=== PATIENT | male | born 1960 | race Caucasian/White ===

== ENCOUNTER 2019-06-09 00:33 | Inpatient (IN) ==
--- NOTE | 2019-06-09 02:49 | History & Physical Report ---
Date of Service June 09, 2019 Assessment & Plan (1) Diarrhea: This is a 58-year-old male who presents from [facility] ED due to worsening abdominal pain, nausea, diarrhea and bloating for several days. Past medical history significant for history of pancreatitis, hypertension (on daily lisino pril), GERD (on daily omeprazole and ranitidine ), irritable bowel --he states he has had prior EGD and colonoscopy about 20 years ago with [facility]. That was done due to similar symptoms of loose stools and persistent severe abdominal pain and bloating. States he had an episode of gastroenteritis about 2 weeks ago when " a bug was going around" but that resolved. Now with recurrent gastrointestinal upset for several days. Denies bloody bowel movements. Endorses watery bowel movements " too many to count". At outside hospital: -Received IV fluids, Toradol, Zofran, Reglan, Dilaudid, magnesium sulfate, and apparently Zosyn. -Labs: H&H 16.3/48.9, platelets 238, significant eosinophilia 12.7 (1.0-3.0), urine negative for nitrites or leukocytes or glucose. Trace protein. Coags normal. Sodium 141, potassium 3.6, chloride 106, anion gap 17.6, BUN 15, creatinine 1.1. Glucose 112. Total bilirubin 0.6. AST ALT 18/30. Albumin 3.8. Alkaline phosphatase 72, C. difficile negative. Magnesium 1.5. Rapid flu negative. Lipase 193. Lactic acid 1.4. -Imaging: CT abdomen and pelvis with contrast report states " fluid in the colon suggesting diarrhea, mild distention and small and large bowel loops, unremarkable appendix, thickening of the distal esophagus, GE junction and gastric cardia. Could be from inflammatory or neoplastic process. Further evaluation needed. Small nodes and some surrounding edema/fluid. Thickening in the distal stomach with the much milder adjacent stranding. No radiodense gallstones or pancreatitis. Left renal cyst. Small fat-containing umbilical hernia." Assessment: Profuse diarrhea for several days -In setting of person diagnosed with irritable bowel -C. difficile is negative at outside hospital -CT abdomen with abnormal findings as above. Plan: -We will have CT of the abdomen pelvis scanned into chart for radiology review -Consult gastroenterology for possible EGD -N.p.o. -IV fluids -Antiemetics, pain control -Urine, stool, and blood cultures pending from outside hospital ([facility], .) FEN/GI: N.p.o. with sips. IV fluids running at maintenance. Continue home H2 esrge and PPI. DVT ppx: SCDs while awaiting possible intervention. CODE STATUS: Full as discussed with patient DISPO: MedSurg, GI consult. Other ongoing medical problems: -Hypertension: Continue home lisinopril -GERD: Continue home H2 serge and PPI. (2) Bloating: (3) Nausea & vomiting: (4) Abnormal CT of the abdomen: (5) Benign essential hypertension: (6) GERD (gastroesophageal reflux disease): (7) Irritable bowel syndrome: History of Present Illness Primary Care Provider: Kath Mike PA-C This is a 58-year-old male who presented to an outside hospital ED due to worsening abdominal pain, nausea, diarrhea and bloating for several days. Past medical history significant for history of pancreatitis, hypertension (on daily lisinopril), GERD (on daily omeprazole and ranitidine ), irritable bowel --he states he has had prior EGD and colonoscopy about 20 years ago with [facility]. That was done due to similar symptoms of loose stools and persistent severe abdominal pain and bloating. States he had an episode of david roenteritis about 2 weeks ago when " a bug was going around" but that resolved. Now with recurrent gastrointestinal upset for several days. Denies bloody bowel movements. Endorses watery bowel movements " too many to count". Family history: Father at age 62 due to " obesity, not watching his sugars, his heart exploded". Mother alive and well. Has 2 step siblings. Past medical history: As above. Past surgical history: Shoulder surgery, tonsillectomy. Social history: He is a truck loader overhead crane. He lives alone. He smoked about 20 years ago for a year. No alcohol or drugs. No recent travel outside the [place]. Home Medications Home Medications Medication Instructions Recorded Confirmed Type lisinopril DAILY 06/09/19 History Past Med/Surg History Social History Preferred Language: Nigerian Communication Ability: Effective Training And Development Project Leader Required: No Beliefs That Will Affect Care: None Current Living Situation: Alone Feels Safe at Home: Yes Safety Concerns: Feels Safe At This Time Smoking Status: Never smoker Hx Alcohol Use: No Hx Substance Use: No Supervising Physician Co-Signing Physician Notes Pt seen/examined following resident MD Lottie Schultz. Orders and plan of admission reviewed with resident. 58 y/o M Hx HTN, prior cyclical vomiting episodes with neg EGD/colonoscopy > 10 yrs ago. Presents as a transfer from [facility] due to intractable nausea/vomiting and abnormal imaging of the upper stomach/lower esophagus. Differential of inflammatory process vs malignancy per report from [facility]. OE: AAO x 3 S1,2 R CTAB NT, ND No CCE No deficits No rashes / ulcers P: IVF, NPO, antiemetics GI consult to review imaging and decide if an urgent EGD is merited Resident Activity Tracking Resident Involvement: Resident Care Provided Care Provided: Adult Hospital Medicine
[2019-06-09] MEDS ORDERED: ACETAMINOPHEN 325 MG TAB PO PRN (02:54)
[2019-06-09] MEDS ORDERED: POLYETHYLENE (MIRALAX) 17 GM PACK PO PRN (02:54)
[2019-06-09] MEDS ORDERED: ALUMINUM/MAGNESIUM SUSP 30 ML UDC PO PRN (02:54)
[2019-06-09] MEDS ORDERED: MoRPHine SULFATE 2 MG/ML CARP IV PRN (02:54)
[2019-06-09] MEDS ORDERED: ONDANSETRON INJ 2 MG/ML 2 ML VIAL IV PRN (02:54)
[2019-06-09] MEDS ORDERED: MAGNESIUM HYDROXIDE SUSP 30 ML UDC PO PRN (02:54)
[2019-06-09] MEDS ORDERED: D5W AND 1/2NSS + 20MEQ KCL 20 MEQ/1,000 ML BAG IV SCH (04:30)
[2019-06-09 05:55] LABS: Basophils # (auto) 0.05 K/uL (0-0.2); Basophils % (auto) 0.2 %; Eosinophils % (auto) 10.7 %; Hematocrit (blood only) 50.1 % (42-52); Hemoglobin 16.8 g/dL (14.0-18.0); Immature Granulocytes # (auto) 0.16 K/uL (0.00-0.02); Immature Granulocytes % (auto) 0.7 %; Lymphocytes # (auto) 1.86 K/uL (1.2-3.4); Lymphocytes % (auto) 8.3 %; Mean Corpuscular Hemoglobin 31.9 pg (25-34); Mean Corpuscular Hgb Conc 33.5 g/dL (32-36); Mean Corpuscular Volume 95.2 fL (80-100); Mean Platelet Volume 11.8 fL (7.4-10.4); Monocytes # (auto) 1.99 K/uL (0.11-0.59); Monocytes % (auto) 8.9 %; Neutrophils # (auto) 15.99 K/uL (1.4-6.5); Neutrophils % (auto) 71.2 %; Platelet Count 180 K/uL (130-400); RDW Coefficient of Variation 13.2 % (11.5-14.5); RDW Standard Deviation 45.7 fL (36.4-46.3); Red Blood Count 5.26 M/uL (4.7-6.1); White Blood Count 22.45 K/uL (4.8-10.8)
[2019-06-09 06:26] LABS: BUN Creatinine Ratio 16.1 (10-20); Calcium 8.2 mg/dl (8.5-10.1); Creatinine Clr Calc Pharmacy 121.8 ml/min; Est GFR (African American) 101.3; Est GFR (Non-African American) 87.4; Potassium 3.9 mmol/L (3.5-5.1)
[2019-06-09 06:29] LABS: Albumin Globulin Ratio 0.9 (0.9-2); Bilirubin,Total 0.8 mg/dl (0.2-1); Globulin 3.3 gm/dl (2.5-4.0); Total Protein 6.3 gm/dl (6.4-8.2)
[2019-06-09] MEDS ORDERED: FAMOTIDINE 20 MG in SYRINGE 3 ML IV SCH (09:00)
[2019-06-09] MEDS ORDERED: lisinopriL 10 MG TAB PO SCH (09:00)
[2019-06-09] MEDS ORDERED: PANTOprazole 40 MG TAB PO SCH (09:00)
[2019-06-09] MEDS ORDERED: KETAMINE HCL INJ 50 MG/ML 10 ML VIAL ONE (12:03)
[2019-06-09] MEDS ORDERED: SODIUM CHLORIDE 0.9% 1000ML 1,000 ML IV SCH (12:15)
--- NOTE | 2019-06-09 12:15 | History & Physical Report ---
Date of Service June 09, 2019 History of Present Illness Chief Complaint: Abd pain, abnl CT of the esophagus Primary Care Provider: Kath Mike PA-C For EGD Allergies Allergy/AdvReac Type Severity Reaction Status Date / Time No Known Allergies Allergy Unverified 06/09/19 05:01 Home Medications Home Medications Medication Instructions Recorded Confirmed Type lisinopril DAILY 06/09/19 History Past Med/Surg History Social History Preferred Language: Polish Communication Ability: Effective Interactive Video Technician Required: No Beliefs That Will Affect Care: None Current Living Situation: Alone Feels Safe at Home: Yes Safety Concerns: Feels Safe At This Time Smoking Status: Never smoker Hx Alcohol Use: No Hx Substance Use: No Physical Exam Constitutional: + obese Respiratory: normal respiratory effort Cardiovascular: Rate/Rhythm: regular rate and regular rhythm Gastrointestinal (Abdomen): Percussion/Palpation: abdomen soft Results & Data Vital Signs (Past 12 Hours) Vital Signs Temp Pulse Pulse Resp BP Pulse Ox 06/09/19 12:05 36.6 C 77 20 165/102 H 93 06/09/19 07:36 37.2 C 80 18 131/84 91 06/09/19 02:35 36.7 C 18 145/95 H 93
--- NOTE | 2019-06-09 12:16 | Anesthesiology Consultation ---
Date of Service June 09, 2019 Assessment & Plan (1) Encounter for pre-operative examination: Chart Review Chart Review: Acceptable Risk for Surgery and Patient NOT seen in Pre Admission Testing Consults Requested none History Surgery Operation Date: 06/09/19 16:00 Proposed Procedures p Esophagogastroduodenoscopy Dr Kisha Beard Height/Weight Height: 5 ft 11 in Weight: 140.6 kg Allergies Allergy/AdvReac Type Severity Reaction Status Date / Time No Known Allergies Allergy Unverified 06/09/19 05:01 Medications Home Medications Medication Instructions Recorded Confirmed Last Taken lisinopril DAILY 06/09/19 Unknown Active Medications Generic Name Dose Route Start Last Admin Trade Name Freq PRN Reason Stop Dose Admin Potassium Chloride/Dextrose/Sod Cl 20 meq in 1,000 mls @ 100 mls/hr 06/09/19 04:30 06/09/19 06:13 D5w And 1/2nss + 20meq Kcl IV 07/09/19 04:29 100 mls/hr .Q10H NICHOLAS Infusion Famotidine 20 mg/ Syringe 5 mls @ 2.5 mls/min 06/09/19 09:00 06/09/19 09:00 IV 07/09/19 08:59 Not Given BID NICHOLAS Lisinopril 30 mg 06/09/19 09:00 06/09/19 08:57 Zestril PO 07/09/19 08:59 30 mg QAM NICHOLAS Administration Pantoprazole Sodium 40 mg 06/09/19 09:00 06/09/19 08:59 Protonix PO 07/09/19 08:59 40 mg BID NICHOLAS Administration NPO Date Last Intake of Fluids: 06/08/19 Time Last Intake of Fluids: 23:59 Date Last Intake of Solids: 06/08/19 Time Last Intake of Solids: 12:00 Social History Smoking Status: Never smoker Hx Alcohol Use: No Hx Substance Use: No Physical Exam Vital Signs Last Vital Signs Temp 36.6 C 06/09/19 12:05 Pulse 77 06/09/19 12:05 Resp 20 06/09/19 12:05 BP 165/102 H 06/09/19 12:05 Pulse Ox 93 06/09/19 12:05 Testing Laboratory Results 06/09/19 05:33 06/09/19 05:33
[2019-06-09] MEDS ORDERED: ATROPINE SULFATE 0.1 MG/ML 10ML SYR IV PRN (12:19)
[2019-06-09] MEDS ORDERED: ePHEDrine sulfate 50 MG/ML AMP IV PRN (12:19)
--- NOTE | 2019-06-09 12:37 | GI REPORT ---
Patient Name: Matt Van Procedure Date: 06/09/2019 12:21 PM Date of : 1960 Admit Type: Inpatient Age: 58 Gender: Male Attending MD: Nimesh Beard MD Procedure: Upper GI endoscopy Providers: Nimesh Beard MD Referring MD: Will Carlton Indications: Epigastric abdominal pain, Abnormal CT of the GI tract, Nausea with vomiting Medicines: Propofol total dose 160 mg IV, Ketamine 20 mg IV, Lidocaine 80 mg IV Complications: No immediate complications. Estimated Blood Loss: Estimated blood loss: none. Procedure: Pre-Anesthesia Assessment: - Prior to the procedure, a History and Physical was performed, and patient medications, allergies and sensitivities were reviewed. The patient's tolerance of previous anesthesia was reviewed. - The risks and benefits of the procedure and the sedation options and risks were discussed with the patient. All questions were answered and informed consent was obtained. After obtaining informed consent, the endoscope was passed under direct vision. Throughout the procedure, the patient's blood pressure, pulse, and oxygen saturations were monitored continuously. The Endoscope was introduced through the mouth, and advanced to the second part of duodenum. The upper GI endoscopy was accomplished without difficulty. The patient tolerated the procedure well. Findings: The examined esophagus was normal. The Z-line was regular and was found 40 cm from the incisors. There are no mass lesions seen. The entire examined stomach was normal. The examined duodenum was normal. Impression: - Normal esophagus. - Z-line regular, 40 cm from the incisors. - Normal stomach. - Normal examined duodenum. - No specimens collected. Recommendation: - Return patient to hospital [facility] for ongoing care. Nimesh Beard M.D. Nimesh Beard MD 06/09/2019 12:36:41 PM This report has been signed electronically. Note Initiated On: 06/09/2019 12:21 PM Number of Addenda: 0 I attest to the content of the Intraoperative Record and orders documented therein, exceptions below {[id number]}
[2019-06-09] MEDS ORDERED: LIDOCAINE HCL 2% 2 ML VIAL/AMP(20MG/ML) INFIL ONE (12:41)
[2019-06-09] MEDS ORDERED: PROPOFOL IV EMULSION 10 MG/ML 20 ML VIAL IV ONE (12:41)
--- NOTE | 2019-06-09 12:58 | Consultation Report ---
DATE OF CONSULTATION: 06/09/2019 GASTROINTESTINAL CONSULT NOTE REASON FOR EVALUATION: Nausea, vomiting, diarrhea and abnormal CT scan of the esophagus. HISTORY OF PRESENT ILLNESS: The patient is a 58-year-old with irritable bowel, who was transferred to [facility] from [facility] when he presented with the above symptoms. The patient states that he had similar episode 12 years ago and was placed on ranitidine and Prilosec, which resolved his symptoms. Recently, his physician recommended that he stop these medications and his symptoms have recurred. When he presented to the hospital, he had a CT scan that showed some thickening of the distal esophagus. His white count was elevated at 22,000 and he was having a fairly profuse diarrhea. Stool for C. diff was obtained at [facility] and was negative. Multiple other stool studies are pending from there as well. GI consultation was recommended for possible EGD. PAST MEDICAL HISTORY: Remarkable for hypertension. MEDICATIONS: Lisinopril. ALLERGIES: None. FAMILY HISTORY: Noncontributory. SOCIAL HISTORY: The patient communicates in Tongan. Does not smoke, does not drink any alcohol. REVIEW OF SYSTEMS: Positive for some abdominal bloating and some loose stools. Remainder is negative. PHYSICAL EXAMINATION: GENERAL: The patient appears awake, alert, in no acute distress. VITAL SIGNS: Normal. He is afebrile. SKIN: Shows multiple tattoos on his arms. LUNGS: Clear. HEART: Showed normal S1 and S2. Regular rate and rhythm. ABDOMEN: Soft and nontender. EGD was performed and was normal. No lesions were seen especially in the esophagus. IMPRESSION AND PLAN: The patient appears to have some kind of infectious enteritis. I would await stool cultures and support with IV fluids and antidiarrheals as needed. Dr. Stroud will be covering over the weekend.
--- NOTE | 2019-06-09 13:16 | Anesthesiology Progress Note ---
Date of Service June 09, 2019 Anesthesia Post Procedure Vital Signs Vital Signs: Temp Pulse Pulse Resp BP Pulse Ox 06/09/19 13:13 74 20 138/76 95 06/09/19 12:58 74 20 152/6 H 95 06/09/19 12:43 36.6 C 78 20 127/65 94 06/09/19 12:05 36.6 C 77 20 165/102 H 93 06/09/19 07:36 37.2 C 80 18 131/84 91 06/09/19 02:35 36.7 C 18 145/95 H 93 Pain Intensity Abdomen: Pain Intensity: 2 Transfer of Care Handoff Completed per policy Notes Mental Status: alert / awake / arousable Patient Amnestic to Procedure: Yes Nausea / Vomiting: adequately controlled Pain: adequately controlled Airway Patency, RR, SpO2: stable & adequate BP & HR: stable & adequate Hydration State: stable & adequate Anesthetic Complications: no major complications apparent and Pt Satisfied with anesthetic care
--- NOTE | 2019-06-09 14:51 | Discharge Summary ---
Date of Service June 09, 2019 Admission HPI Per Admitting Provider This is a 58-year-old male who presented to an outside hospital ED due to worsening abdominal pain, nausea, diarrhea and bloating for several days. Past medical history significant for history of pancreatitis, hypertension (on daily lisinopril), GERD (on daily omeprazole and ranitidine ), irritable bowel --he states he has had prior EGD and colonoscopy about 20 years ago with [facility]. That was done due to similar symptoms of loose stools and persistent severe abdominal pain and bloating. States he had an episode of gastroenteritis about 2 weeks ago when " a bug was going around" but that reso lved. Now with recurrent gastrointestinal upset for several days. Denies bloody bowel movements. Endorses watery bowel movements " too many to count". Admission Exam Per Admitting Provider AAO x 3 S1,2 R CTAB NT, ND No CCE No deficits No rashes / ulcers Principal Diagnosis Diarrhea, Dehydration Discharge Exam Constitutional WD/WN, vitals as above no acute distress Eyes + anicteric sclerae and PERRL Neck trachea midline, no thyromegaly Respiratory normal respiratory effort, lungs clear to auscultation Cardiovascular RRR, no murmur, no edema Gastrointestinal (Abdomen) normal bowel sounds, soft, nontender, no hepatosplenomegaly Musculoskeletal no cyanosis or clubbing, extremities motor strength 5/5 Skin no rashes, warm and dry Psychiatric A+Ox3, euthymic affect Lymphatic no cervical or axillary lymphadenopathy Discharge Data Allergies Allergy/AdvReac Type Severity Reaction Status Date / Time No Known Allergies Allergy Unverified 06/09/19 05:01 Consultations 06/09/19 02:54 Consult Gastroenterology Routine Procedures Performed Operation Date: 06/09/19 16:00 Actual Procedures p Esophagogastroduodenoscopy - [facility] Course (1) Diarrhea: This is a 58-year-old male who presents from [facility] ED due to worsening abdominal pain, nausea, diarrhea and bloating for several days. Past medical history significant for history of pancreatitis, hypertension (on daily lisinopril), GERD (on daily omeprazole and ranitidine ), irritable bowel --he states he has had prior EGD and colonoscopy about 20 years ago with [facility]. That was done due to similar symptoms of loose stools and persistent severe abdominal pain and bloating. States he had an episode of gastroenteritis about 2 weeks ago when " a bug was going around" but that resolved. Now with recurrent gastrointestinal upset for several days. Denies bloody bowel movements. Endorses watery bowel movements " too many to count". At outside hospital: -Received IV fluids, Toradol, Zofran, Reglan, Dilaudid, magnesium sulfate, and apparently Zosyn. -Labs: H&H 16.3/48.9, platelets 238, significant eosinophilia 12.7 (1.0-3.0), urine negative for nitrites or leukocytes or glucose. Trace protein. Coags normal. Sodium 141, potassium 3.6, chloride 106, anion gap 17.6, BUN 15, creatinine 1.1. Glucose 112. Total bilirubin 0.6. AST ALT 18/30. Albumin 3.8. Alkaline phosphatase 72, C. difficile negative. Magnesium 1.5. Rapid flu negative. Lipase 193. Lactic acid 1.4. -Imaging: CT abdomen and pelvis with contrast report states " fluid in the colon suggesting diarrhea, mild distention and small and large bowel loops, unremarkab le appendix, thickening of the distal esophagus, GE junction and gastric cardia. Could be from inflammatory or neoplastic process. Further evaluation needed. Small nodes and some surrounding edema/fluid. Thickening in the distal stomach with the much milder adjacent stranding. No radiodense gallstones or pancreatitis. Left renal cyst. Small fat-containing umbilical hernia." --Stool cultures obtained at [facility] --> CT findings as above. Cdiff negative. GI consulted --> EGD performed -- without abnormality Patient tolerated diet prior to discharge -- decreased diarrhea/pain Instructed to use Immodium OTC in absence of bloody diarrhea Given prescription for ranitidine and omeprazole -- patient to follow up with PCP and [facility] for colonoscopy as outpatient for hx IBS Lisinopril continued for HTN. (2) Bloating: (3) Nausea & vomiting: (4) Abnormal CT of the abdomen: (5) Benign essential hypertension: (6) GERD (gastroesophageal reflux disease): (7) Irritable bowel syndrome: Total Time Total Time Spent Total Time Spent (In Minutes): 45 Discharge Plan Discharge Items Patient Disposition: Home - Self-Care Reason For Visit: TRANSFER OSH Discharge Diagnosis: Diarrhea Health Concerns: You have been hospitalized for an acute medical problem. During your stay at [facility], we have made an effort to correct the problem that brought you to the hospital while keeping you as comfortable as possible. Medications were used to bring your condition under control and your discharge instructions will include directions for any medications you should take after leaving the hospital. Please make sure you see your Primary Care Provider as part of your follow up plan. Activity: Resume your previous activity Non-emergency contact: Primary Care Provider Call non-emergency contact if: you have any medication questions and your symptoms worsen Follow-up/Referrals: Kobi Holly MD [Primary Care Provider] - Addtl Attending Provider Instructions: You have been hospitalized for diarrhea and dehydration. You may want to stick to the "BRAT" diet until your diarrhea subsides. This includes bananas, rice, applesauce, toast and other bland food items. A camera was used to look at your upper GI tract and was found to be without abnormality. It is recommended that you resume your omeprazole and ranitidine. These medications have been sent to your pharmacy. You may use Immodium for your diarrhea, as you confirmed you have not had any bloody stools. You should follow up with your primary care provider on wednesday, as scheduled. You may want to follow up with [facility] for an outpatient colonoscopy if you continue to have issues. Please return to the emergency room with any fever, worsening abdominal pain, increasing diarrhea, or for any symptoms that are concerning for you. It has been a pleasure being a part of the team taking care of you during your hospitalization. Take care! Pending Studies at Discharge: Yes Studies:: From [facility]- stool studies, O&P Stand-Alone Forms: My [facility], Work/School Release (Inpt) Medications and DC Order Prescriptions: New omeprazole 20 mg capsule,delayed release(DR/EC) 20 mg PO DAILY Qty: 30 RF: 0 ranitidine HCl 150 mg capsule 150 mg PO BID 30 Days Qty: 60 RF: 0 Continued lisinopril 30 mg tablet DAILY RF: 0 Discharge Orders: Discharge Order (Routine); Ordered 06/09/19 Ordered By: Reena Espana Admission Data Admit Date/Time: 06/09/19 02:26 Attending Provider: Will Carlton Admit Provider: Clayton Vora Primary Care Provider: Kobi Holly Other Providers: Nimesh Beard Other Interventions: Discharge Summary Assessment (RN) Last Done: 06/09/19 16:41 DC Date/Time DO NOT enter until pt leaves facility: 06/09/19 16:59 Supervising Physician Co-Signing Physician Notes Attending Attestation & Discharge Note: Pt seen/examined, chart reviewed, care plan d/w ELVIN Espana. I agree w/ the cunningham components of her discharge summary. 58yo male with HTN and morbid obesity who presented with diarrhea and abdominal pain. Transferred from [facility] to [facility] for the above symptoms and GI consultation. Seen by Dr Nimesh Beard, [facility], and EGD advised. EGD was normal. C. diff testing was negative. Stool culture by report was sent at outside hospital. Symptoms improved while hospitalized. He will take PPI following discharge and f/u with [facility] for consideration of colonoscopy. Discharge exam: gen - NAD, obese mouth - MMM heart - RRR, s1 s2 lungs - CTA b/l abd - soft NT ND BS+ no HSM ext - no edema Will Carlton MD
== END 2019-06-09 16:59 | disposition home or self-care (01) | DRG 392 ==
LOC: SUATTDRO 02:26 → 3W 02:26